=== PATIENT | female | born 1975 ===

== ENCOUNTER 2016-11-15 07:17 | Emergency (ER) | payer MEDICAID, OTHER ==
[2016-11-15 07:18] VITALS: BMI 34.7
[2016-11-15 07:34] VITALS: TEMP 98.2
--- NOTE | 2016-11-15 08:13 | ED PDOC ---
Arrival/HPI <Angel Ricketts - Last Filed: 11/15/16 09:04> - General Historian: Patient - History of Present Illness Time/Duration: 1 week Symptom Onset: Gradual Symptom Course: Unchanged Severity Level: 6 Activities at Onset: Rest Context: Sitting <Cricket Best - Last Filed: 11/15/16 10:16> - General Chief Complaint: High Blood Pressure Time Seen by Provider: 11/15/16 07:25 - History of Present Illness Narrative History of Present Illness (Text): 11/15/16 08:02 This is a 41 yr old female with a significant past medical history of hypertension and pre-eclampsia who comes into the [facility] with complaints of elevated blood pressure readings at home. The patient who recently had a baby on 11/06/16 was pre-eclamptic throughout the and was induced in hopes of stopping the elevated blood pressure. The patient was advised to monitor her blood pressure at home after the . The blood pressure ranges at home were from 118/85 to 170/110. The patient went to her PMD Dr. Wong on where she was prescribed Labetolol HCL 200mg BID for the blood pressure. The patient reports nausea, headaches, and epigastric discomfort. The patient denies any chest pain, shortness of breath, vomiting, fever, chills, changes in vision, and syncopal episodes. 11/15/16 10:12 (Cricket Best) Past Medical History - Provider Review Nursing Documentation Reviewed: Yes - Infectious Disease Hx of Infectious Diseases: None - Tetanus Immunization Tetanus Immunization: Unknown - Past Medical History Past Medical History: No Previous - Cardiac Hx Cardiac Disorders: Yes Hx Hypertension: Yes - Pulmonary Hx Respiratory Disorders: No - Neurological Hx Neurological Disorder: No - HEENT Hx HEENT Disorder: No - Renal Hx Renal Disorder: No - Endocrine/Metabolic Hx Endocrine Disorders: No - Hematological/Oncological Hx Blood Disorders: No - Integumentary Hx Dermatological Disorder: No - Musculoskeletal/Rheumatological Hx Musculoskeletal Disorders: No - Gastrointestinal Hx Gastrointestinal Disorders: No - Genitourinary/Gynecological Hx Genitourinary Disorders: Yes Other/Comment: ovarian cyst - Psychiatric Hx Psychophysiologic Disorder: No Hx Depression: No Hx Emotional Abuse: No Hx Physical Abuse: No Hx Substance Use: No - Past Surgical History Past Surgical History: No Previous - Surgical History Hx Gastric Bypass Surgery: Yes Hx Orthopedic Surgery: Yes (right ankle) Other/Comment: ectopic pregnacy, , tummy tuck, ovarian cyst. breast reduction - Anesthesia Hx Anesthesia: Yes Hx Anesthesia Reactions: No Hx Malignant Hyperthermia: No - Suicidal Assessment Feels Threatened In Home Enviroment: No <Cricket Best - Last Filed: 11/15/16 10:16> Family/Social History - Physician Review Nursing Documentation Reviewed: Yes Family/Social History: Hypertension Smoking Status: Never Smoked Hx Alcohol Use: No Hx Substance Use: No Hx Substance Use Treatment: No <Cricket Best - Last Filed: 11/15/16 10:16> Allergies/Home Meds <Angel Ricketts - Last Filed: 11/15/16 09:04> <Cricket Best - Last Filed: 11/15/16 10:16> Allergies/Adverse Reactions: Allergies No Known Allergies Allergy (Verified 11/15/16 07:27) Home Medications: Home Meds Medication Instructions Recorded Confirmed Labetalol [Trandate] 200 mg PO BID 11/15/16 11/15/16 Review of Systems - Physician Review All systems were reviewed & negative as marked: Yes - Review of Systems Constitutional: Normal. absent: Fevers, Night Sweats Eyes: Normal. absent: Vision Changes, Eye Pain ENT: Normal. absent: Hearing Changes, Rhinorrhea, Epistaxis Respiratory: Normal. absent: SOB, Cough, Wheezing Cardiovascular: Normal, Edema (bilateral l/e 1+ pitting edema). absent: Chest Pain, Palpitations Gastrointestinal: Nausea. absent: Abdominal Pain, Constipation, Diarrhea, Vomiting Musculoskeletal: Normal. absent: Back Pain Skin: Normal. absent: Pruritis, Skin Lesions Neurological: Normal, Headache, Speech Changes. absent: Dizziness, Focal Weakness <Cricket Best - Last Filed: 11/15/16 10:16> Physical Exam Vital Signs Reviewed: Yes Temperature: Afebrile Blood Pressure: Hypertensive Pulse: Regular Respiratory Rate: Normal Appearance: Positive for: Well-Appearing, Non-Toxic, Uncomfortable Pain Distress: Moderate Mental Status: Positive for: Alert and Oriented X 3 - Systems Exam Head: Present: Atraumatic, Normocephalic Pupils: Present: PERRL Extroacular Muscles: Present: EOMI Conjunctiva: Present: Normal Mouth: Present: Moist Mucous Membranes Neck: Present: Normal Range of Motion. No: JVD, Bruit Respiratory/Chest: Present: Clear to Auscultation, Good Air Exchange. No: Respiratory Distress, Accessory Muscle Use Cardiovascular: Present: Normal S1, S2, Peripheal Pulses Present. No: Murmurs, Tachycardic, Bradycardic Abdomen: Present: Tenderness, Normal Bowel Sounds. No: Distention, Rebound, Guarding Upper Extremity: Present: Normal Inspection. No: Tenderness, Swelling, Erythema Lower Extremity: Present: Edema (l/e bilateral 1+ pitting edema). No: Tenderness, Erythema Neurological: Present: CN II-XII Intact, Speech Normal Skin: Present: Dry, Normal Color. No: Rashes, Pale Psychiatric: Present: Alert, Oriented x 3, Normal Insight <Cricket Best - Last Filed: 11/15/16 10:16> Vital Signs Temp Pulse Resp BP Pulse Ox 11/15/16 09:38 76 18 152/82 H 100 11/15/16 08:44 70 16 159/99 H 99 11/15/16 08:11 154/116 H 11/15/16 07:33 98.2 F 90 16 154/116 H 99 Medical Decision Making <Angel Ricketts - Last Filed: 11/15/16 09:04> - EKG Interpretation Interpreted by ED Physician: Yes Type: 12 lead EKG <Cricket Best - Last Filed: 11/15/16 10:16> ED Course and Treatment: A 41 year old female with elevated blood pressure. In agreement with resident note, which includes further HPI details. Patient was seen and evaluated with resident, came up with plan and treatment together. 11/15/16 08:54 Seen and examined with the resident. Our history and physical exam reveals a woman 1 week from a . She is not nursing. History of hypertension when she was morbidly obese. She did have a Melany-en-Y gastric bypass and lost 150 pounds. She no longer had a blood pressure problem following weight loss. Towards the end of her she developed hypertension and headaches. She was induced. She was seen yesterday by her OB/ [employer] MANAGER and started on labetalol for continued preeclampsia. She complains of continued hypertension and headache today. No visual disturbance. No numbness tingling or paresthesias. No focal weakness. No difficulty with ADLs. No difficulty with speech. Her neurological exam is normal. 11/15/16 09:05 EKG shows normal sinus rhythm rate approximately [address] or T-wave changes (Angel Ricketts) 11/15/16 08:20 Patient presented to [facility] with elevated blood pressure. Patient was given 0.1 Clonidine PO Tab for the blood pressure. Labs were ordered including , u/a, cbc/with differential, cmp, Head CT w/o contrast. Patient will be reevaluated after lab results return. (Cricket Best) - Lab Interpretations Lab Results: 11/15/16 08:00 11/15/16 08:00 Lab Results 11/15/16 08:20: Urine Color Yellow, Urine Appearance Sl cloudy, Urine pH 7.5, Ur Specific [place] 1.010, Urine Protein Negative, Urine Glucose (UA) Negative, Urine Ketones Negative, Urine Blood Moderate H, Urine Nitrate Negative, Urine Bilirubin Negative, Urine Urobilinogen 0.2, Ur Leukocyte Esterase Trace H, Urine RBC 0 - 2, Urine WBC 0 - 2, Ur Epithelial Cells 0 - 2 11/15/16 08:00: Sodium 139, Potassium 4.0, Chloride 107, Carbon Dioxide 23, Anion Gap 13, BUN 9, Creatinine 0.5, Est GFR ( Amer) > 60, Est GFR (Non- Af Amer) > 60, Random Glucose 87, Calcium 8.3 L, Total Bilirubin 0.5, AST 35, ALT 36, Alkaline Phosphatase 87, Lactate Dehydrogenase 781 H, Total Creatine Kinase 196, Troponin I < 0.01, Total Protein 6.1, Albumin 3.1, Globulin 2.9, Albumin/Globulin Ratio 1.1 11/15/16 08:00: WBC 5.7, RBC 4.19, Hgb 10.5 L, Hct 33.7 L, MCV 80.4, MCH 25.1, MCHC 31.2, RDW 15.5 H, Plt Count 401, MPV 8.6, Gran % 57.5, Lymph % (Auto) 32.7 , [place] % (Auto) 8.5 H, Eos % (Auto) 1.1 L, Baso % (Auto) 0.2, Gran # 3.25, Lymph # 1.9, [place] # 0.5, Eos # 0.1, Baso # 0.01 - RAD Interpretation Radiology Orders: 11/15/16 07:52 HEAD W/O CONTRAST [CT] Stat - Medication Orders Current Medication Orders: Discontinued Medications Acetaminophen (Tylenol 325mg Tab) 975 mg PO STAT STA Stop: 11/15/16 08:54 Last Admin: 11/15/16 09:10 Dose: 975 mg Clonidine HCl (Catapres) 0.1 mg PO STAT STA Stop: 11/15/16 07:55 Last Admin: 11/15/16 08:11 Dose: 0.1 mg - PA / MEDICAL PHOTOGRAPHER / Resident Statement MD/DO has reviewed & agrees with the documentation as recorded. MD/DO has examined the patient and agrees with the treatment plan. - Scribe Statement The provider has reviewed the documentation as recorded by the Scribe <Angel Ricketts - Last Filed: 11/15/16 09:04> <Cricket Best - Last Filed: 11/15/16 10:16> - Scribe Statement Simi Rolle Provider Scribe Attestation: All medical record entries made by the Scribe were at my direction and personally dictated by me. I have reviewed the chart and agree that the record accurately reflects my personal performance of the history, physical exam, medical decision making, and the department course for this patient. I have also personally directed, reviewed, and agree with the discharge instructions and disposition. (Angel Ricketts) Disposition/Present on Arrival <Angel Ricketts - Last Filed: 11/15/16 09:04> - Present on Arrival Any Indicators Present on Arrival: No History of DVT/PE: No History of Uncontrolled Diabetes: No Urinary Catheter: No History of Decub. Ulcer: No History Surgical Site Infection Following: None - Disposition Have Diagnosis and Disposition been Completed?: Yes Disposition Time: 09:30 Patient Plan: Discharge <Cricket Best - Last Filed: 11/15/16 10:16> - Disposition Diagnosis: Pre-eclampsia Disposition: HOME/ ROUTINE Patient Problems: Current Active Problems Problem Status Onset Pre-eclampsia Acute Condition: GOOD Discharge Instructions (ExitCare): Preeclampsia (ED), Hypertension (ED) Additional Instructions: Patient is to continue to take Labetalol as previously prescribed by Dr. Wong. Patient is to also take Clonidine 0.1 mg Tab B.I.D. . Patient is to F/U with Dr. Wong within a week. Patient is to F/U with PMD within one week. Patient should return back to the Emergency Department if any new, concerning, or existing symptoms arise. Prescriptions: cloNIDine [Catapres] 0.1 mg PO BID #20 tab Referrals: Jacque Lozada MD [Primary Care Provider] - Follow up with primary Forms: [employer] ([place]an), tydy (Khmer)
[2016-11-15 08:17] LABS: BASO # 0.01 K/mm3 (0.0-2.0); BASO % 0.2 % (0.0-3.0); EOS # 0.1 (0.0-0.7); EOS % 1.1 % (1.5-5.0); GRAN # 3.25 (1.4-6.5); GRAN % 57.5 % (50.0-68.0); HEMOGLOBIN 10.5 gm/dL (12.0-16.0); LYMPH # 1.9 (1.2-3.4); LYMPH % 32.7 % (22.0-35.0); MEAN CELL VOLUME 80.4 fL (80.0-105.0); MEAN CORPUSCULAR HEMOGLOBIN 25.1 pg (25.0-35.0); MEAN CORPUSCULAR HGB CONC 31.2 g/dl (31.0-37.0); MEAN PLATELET VOLUME 8.6 fl (7.0-11.0); MONO # 0.5 (0.1-0.6); MONO % 8.5 % (1.0-6.0); PLATELET COUNT 401 10^3/uL (120.0-450.0); RBC 4.19 10^6/uL (3.5-6.1); RED CELL DISTRIBUTION WIDTH 15.5 % (11.5-14.5); WHITE BLOOD COUNT 5.7 10^3/ul (4.5-11.0)
[2016-11-15 08:23] LABS: ALB/GLOB RATIO 1.1 (1.1-1.8); ALBUMIN 3.1 g/dL (3.0-4.8); ALT/SGPT 36 U/L (7-56); AST/SGOT 35 U/L (15-39); BLOOD UREA NITROGEN 9 mg/dL (7-21); CALCIUM 8.3 mg/dL (8.4-10.5); GFR AFRICAN-AMERICAN > 60; GFR NON-AFRICAN AMERICAN > 60
[2016-11-15 08:35] LABS: TROPONIN I < 0.01 ng/mL
[2016-11-15 08:37] LABS: PH,URINE 7.5 (4.7-8.0); URINE BILIRUBIN NEGATIVE (NEGATIVE); URINE BLOOD MODERATE (NEGATIVE); URINE GLUCOSE (UA) NEGATIVE (NEGATIVE); URINE LEUKOCYTE ESTERASE TRACE Leu/uL (NEGATIVE); URINE NITRATE NEGATIVE (NEGATIVE); URINE PROTEIN NEGATIVE mg/dL (<30 mg/dL); URINE UROBILINOGEN 0.2 E.U./dL (<1 E.U./dL)
[2016-11-15 08:38] LABS: URINE APPEARANCE SL CLOUDY (CLEAR); URINE COLOR YELLOW (YELLOW)
[2016-11-15 08:41] LABS: URINE EPITHELIAL CELLS 0 - 2 /hpf (0-5); URINE RBC 0 - 2 /hpf (0-2); URINE WBC 0 - 2 /hpf (0-6)
--- NOTE | 2016-11-15 08:48 | CT ---
PROCEDURE: CT HEAD WITHOUT CONTRAST. HISTORY: r/o ischemia of pituitary COMPARISON: None available. TECHNIQUE: Axial computed tomography images were obtained through the head/brain without intravenous contrast. Radiation dose: Total exam DLP = 711.81 mGy-cm. This CT exam was performed using one or more of the following dose reduction techniques: Automated exposure control, adjustment of the mA and/or kV according to patient size, and/or use of iterative reconstruction technique. FINDINGS: HEMORRHAGE: No intracranial hemorrhage. BRAIN: Resendiz-white matter differentiation is preserved. There is no mass, mass effect or abnormal extra-axial fluid collection. VENTRICLES: The ventricles are normal in size, shape and configuration. CALVARIUM: The skull base and calvarium are normal. PARANASAL SINUSES: Predominantly clear. MASTOID AIR CELLS: Predominantly clear. OTHER FINDINGS: None. IMPRESSION: No acute intracranial abnormality.
[2016-11-15 09:39] VITALS: BP 152/82; PULSE 76; RESP 18; O2SAT 100
--- NOTE | 2016-11-15 14:58 | CARD ---
APPROVED REPORT EKG Measurement Heart [id number] <Conclusion> Normal sinus rhythm Normal ECG
== END 2016-11-15 10:23 | disposition home or self-care (01) ==
LOC: ED 07:17
DX: O14.95 Unspecified pre-eclampsia, complicating the puerperium (principal)

== ENCOUNTER 2018-05-29 11:35 | Outpatient (CLI) | payer OTHER | END 2018-05-29 11:36 | disposition home or self-care (01) | LOC: RAD 11:35 ==

== ENCOUNTER 2018-07-02 10:43 | Outpatient (CLI) | payer OTHER | END 2018-07-02 10:44 | disposition home or self-care (01) | LOC: RAD 10:43 | DX: M54.12 Radiculopathy, cervical region (principal) ==